=== PATIENT | female | born 1985 | race Caucasian/White ===

== ENCOUNTER 2016-10-19 10:26 | Emergency (ER) | payer OTHER ==
[~2016-10-19] VITALS: Ht 175.3 cm; Wt 57.2 kg
[2016-10-19 10:51] VITALS: BP 126/76
[2016-10-19 11:07] VITALS: BP_SYST 118; BP_SYST 137; BP_DIAS 74; BP_DIAS 83; BP_DIAS 86
[2016-10-19] MEDS ORDERED: Lidocaine 2% Visc 15ml soln ORAL ONE (11:15)
[2016-10-19] MEDS ORDERED: Mylanta II UD 30ml ORAL ONE (11:15)
[2016-10-19] MEDS ORDERED: Famotidine 20 MG/ 2ML VIAL IVP ONE (11:15)
[2016-10-19 11:33] LABS: BASOPHILS % (AUTO) 1.3 % (0.0-2.0); EOSINOPHILS % (AUTO) 2.9 % (0.0-3.0); LYMPHOCYTES % (AUTO) 46.6 % (20.0-45.0); MEAN CORPUSCULAR HEMOGLOBIN 30.2 PG (27.0-31.0); MEAN CORPUSCULAR HGB CONC 33.3 G/DL (32.0-36.0); MEAN CORPUSCULAR VOLUME 91 FL (80-99); MEAN PLATELET VOLUME 10.2 FL (6.5-10.1); MONOCYTES % (AUTO) 6.9 % (1.0-10.0); NEUTROPHILS % (AUTO) 42.4 % (45.0-75.0); PLATELET COUNT 349 K/UL (150-450); RED BLOOD COUNT 4.83 M/UL (4.20-5.40); RED CELL DISTRIBUTION WIDTH 11.8 % (11.6-14.8)
[2016-10-19 11:36] LABS: KETONES,URINE NEGATIVE (NEGATIVE); LEUKOCYTE ESTERASE ,URINE NEGATIVE (NEGATIVE); NITRITE,URINE NEGATIVE (NEGATIVE); PH,URINE 7 (4.5-8.0); PROTEIN,URINE NEGATIVE (NEGATIVE); UROBILINOGEN,URINE NORMAL MG/DL (0.0-1.0)
[2016-10-19 11:41] LABS: APPEARANCE,URINE CLEAR
[2016-10-19 11:48] LABS: ALANINE AMINOTRANSFERASE 10 U/L (3-33); ALBUMIN/GLOBULIN RATIO 1.7 (1.0-2.7); ANION GAP 17 (5-15); ASPARTATE AMINO TRANSFERASE 18 U/L (5-40); CALCIUM 10.3 mg/dL (8.6-10.2); CARBON DIOXIDE 19 mEQ/L (20-30); CHLORIDE 99 mEQ/L (98-107); CREATININE 0.8 mg/dL (0.5-0.9); GLOMERULAR FILTRATION RATE > 60 mL/min (>60); HEMOLYSIS 6; POTASSIUM 3.7 mEQ/L (3.4-4.9); SODIUM 135 mEQ/L (135-145); TOTAL PROTEIN 7.2 g/dL (6.6-8.7); TROPONIN I < 0.30 ng/mL (<=0.30)
[2016-10-19] MEDS ORDERED: PROPYLTHIOURACI50 MG PO (12:27)
[2016-10-19] MEDS ORDERED: PROPYLTHIOURACI50 M2 PO (12:27)
[2016-10-19] MEDS ORDERED: PROPRANOLOL HCL10 MG ORAL (12:27)
[2016-10-19 12:30] VITALS: BP 112/76
--- NOTE | 2016-10-19 12:38 | Emergency Room Report ---
History of Present Illness General Chief Complaint: Chest Pain Source: Patient, Significant Other Present Illness HPI Patient chief complaint is chest pain. It has been occurring for about 2 weeks. She states it is substernal. It is some what sharp and burning with some pleuritic nature. No cough, fever, sore throat. She just returned from long trip to [place] and [place]. She denies swelling or calf pain. While abroad , one doctor told her she had "a little" amount of bacteria in her stomach. She was seen several times while travelling as she was diagnosed with Grave's disease and started on PTU several months ago. In addition, she was unable to tolerate methimazole. While abroad, her PTU dose was increased. She is also on propranolol. She has been taking Zantac but recently it has not helped. The chest pain is worse with eating and also with laying down. Pain is 8/10. She also complains of weakness and nausea with a feeling like she is about to pass out when she stands up. This weakness has increased in the past week and much more since returning home. She saw her drapery rod assembler and he ordered thyroid tests. Not smoker. No diabetes. No visual changes (except when dizzy - when they are fleeting). Last period was normal, now. No dysuria. No constipation. Allergies: Coded Allergies: METHIMAZOLE (Verified Allergy, Unknown, 10/19/16) Patient History Past Medical History: see triage record Past Surgical History: other - breast augmentation Social History: Denies: smoking Social History Narrative 1 1/2 yo at home Last Menstrual Period: on period Reviewed Nursing Documentation: PMH: Agreed, PSxH: Agreed Nursing Documentation-PM Past Medical History: No History, Except For Review of Systems All Other Systems: negative except mentioned in HPI Physical Exam Vital Signs Date Time Temp Pulse Resp B/P Pulse Ox O2 Delivery O2 Flow Rate FiO2 10/19/16 10:32 97.9 57 16 133/85 99 Room Air Sp02 EP Interpretation: reviewed, normal General Appearance: well appearing, no apparent distress, GCS 15 Head: normocephalic Eyes: bilateral eye EOMI, bilateral eye PERRL, bilateral eye normal inspection , bilateral eye other - no exopthalmos ENT: moist mucus membranes Neck: supple, thyromegaly - R>L Respiratory: chest non-tender, lungs clear, normal breath sounds Cardiovascular #1: regular rate, rhythm Cardiovascular #2: 2+ radial (R) Gastrointestinal: normal inspection, normal bowel sounds, non tender, no mass, non-distended Musculoskeletal: back normal, gait/station normal, normal range of motion, no calf tenderness Neurologic: alert, oriented x3, motor strength/tone normal, normal gait, grossly normal Psychiatric: mood/affect normal Skin: normal inspection, warm/dry Medical Decision Making Diagnostic Impression: Primary Impression: Chest pain Qualified Codes: R07.9 - Chest pain, unspecified Additional Impression: Graves disease ER Course Patient with Grave's disease presents with chest pain with weakness and dizziness after prolonged air travel. DDx: GERD, gastritis, PE, pericarditis, dehydration, hyper or hypothyroidism, bradycardia amongst others. Very complex patient where we need to exclude life threatening events (PE). EKG and labs will be performed (including TFTs). Patient will receive IV hydration. We will check D dimer - if + consider CTA chest. She will be treated with pepcid and lido with mylanta. Patient not orthostatic - but dizzy with stand. EKG below. WBC and H/H normal. + D-dimer. CTA ordered. Calcium minimally elevated and free T4 somewhat decreased with normal TSH. CTA = Inadequate study. Due to clinical presentation, electing not to repeat study (low probability). Discussed with Dr. Craig who recommends decreased in PTU, stop propranolol. Patient improved. Discussed finding with patient. Also discussed need for treatment of probable GERD and consideration for eval for H pylori. Patient stable for outpatient observation and treatment. Laboratory Tests Test 10/19/16 11:11 White Blood Count 10.0 K/UL (4.8-10.8) Red Blood Count 4.83 M/UL (4.20-5.40) Hemoglobin 14.6 G/DL (12.0-16.0) Hematocrit 43.9 % (37.0-47.0) Mean Corpuscular Volume 91 FL (80-99) Mean Corpuscular Hemoglobin 30.2 PG (27.0-31.0) Mean Corpuscular Hemoglobin Concent 33.3 G/DL (32.0-36.0) Red Cell Distribution Width 11.8 % (11.6-14.8) Platelet Count 349 K/UL (150-450) Mean Platelet Volume 10.2 FL (6.5-10.1) H Neutrophils (%) (Auto) 42.4 % (45.0-75.0) L Lymphocytes (%) (Auto) 46.6 % (20.0-45.0) H Monocytes (%) (Auto) 6.9 % (1.0-10.0) Eosinophils (%) (Auto) 2.9 % (0.0-3.0) Basophils (%) (Auto) 1.3 % (0.0-2.0) Erythrocyte Sedimentation Rate 9 MM/HR (0-20) D-Dimer 521 ng/mL (<500) H Urine Color Pale yellow Urine Appearance Clear Urine pH 7 (4.5-8.0) Urine Specific Rubicon 1.015 (1.005-1.035) Urine Protein Negative (NEGATIVE) Urine Glucose (UA) Negative (NEGATIVE) Urine Ketones Negative (NEGATIVE) Urine Occult Blood Negative (NEGATIVE) Urine Nitrite Negative (NEGATIVE) Urine Bilirubin Negative (NEGATIVE) Urine Urobilinogen Normal MG/DL (0.0-1.0) Urine Leukocyte Esterase Negative (NEGATIVE) Urine HCG, Qualitative Negative Sodium Level 135 mEQ/L (135-145) Potassium Level 3.7 mEQ/L (3.4-4.9) Chloride Level 99 mEQ/L (98-107) Carbon Dioxide Level 19 mEQ/L (20-30) L Anion Gap 17 (5-15) H Blood Urea Nitrogen 12 mg/dL (7-23) Creatinine 0.8 mg/dL (0.5-0.9) Estimate Glomerular Filtration Rate > 60 mL/min (>60) Glucose Level 96 mg/dL (74-106) Calcium Level 10.3 mg/dL (8.6-10.2) H Total Bilirubin 0.7 mg/dL (0.0-1.2) Aspartate Amino Transferase (AST) 18 U/L (5-40) Alanine Aminotransferase (ALT) 10 U/L (3-33) Alkaline Phosphatase 162 U/L (35-104) H Total Creatine Kinase 93 U/L (26-140) Troponin I < 0.30 ng/mL (<=0.30) Total Protein 7.2 g/dL (6.6-8.7) Albumin 4.6 g/dL (3.5-5.2) Globulin 2.6 g/dL Albumin/Globulin Ratio 1.7 (1.0-2.7) Thyroid Stimulating Hormone (TSH) 1.340 uIU/mL (0.300-4.500) Free Thyroxine 0.84 ng/dL (0.86-1.85) L Free Triiodothyronine Pending EKG Diagnostic Results Rate: normal Rhythm: NSR ST Segments: no acute changes Rhythm Strip Diag. Results EP Interpretation: yes Rhythm: NSR, no PVC's, no ectopy CT/MRI/US Diagnostic Results CT/MRI/US Diagnostic Results : Imaging Test Ordered: CTA chest Impression inadequate view, but no major PE in major vessels Last Vital Signs Date Time Temp Pulse Resp B/P Pulse Ox O2 Delivery O2 Flow Rate FiO2 10/19/16 14:56 64 12 107/63 100 Room Air 10/19/16 13:57 98.2 Status: improved Disposition: HOME, SELF-CARE Condition: Improved Referrals: NON PHYSICIAN (PCP) Andrea Melendrez M.D. Oct 19, 2016 12:38
[2016-10-19 12:46] LABS: ERYTHROCYTE SEDIMENTATION RATE 9 MM/HR (0-20)
[2016-10-19 13:57] VITALS: BP 111/78
[2016-10-19 14:56] VITALS: BP 107/63
--- NOTE | 2016-10-21 09:14 | Diagnostic Imaging Report ---
Indication: CP Technique: XRAY CHEST 1 V Comparison: None. Findings: The cardiomediastinal silhouette is normal. The lungs are clear. There is no evidence of pleural fluid. The bones are unremarkable. Impression: Normal chest.
--- NOTE | 2016-10-21 09:15 | Diagnostic Imaging Report ---
Indication: Chest pain Technique: CT angiography performed utilizing thin section spiral CT and bolus contrast injection. Axial, coronal, and sagittal images were generated. Maximum intensity projections (MIPs) were obtained in the coronal and sagittal planes. Dose: Total Dose Length Product - DLP [address] Dose Index - CTDIvol(s) 12.62, 22.41 mGy. Findings: Study is not of optimal quality due to poor opacification in the pulmonary arteries in the upper lungs. The heart is normal in size. The aorta is unremarkable. No definite pulmonary emboli are identified. There is no evidence of aortic dissection. Bilateral breast implants are noted. There is increased soft tissue in the anterior mediastinum. The lungs are unremarkable. The pleural spaces normal. Impression: Suboptimal examination. No definite evidence of pulmonary emboli. Abnormal increased soft tissue in the anterior mediastinum. Possibilities include enlarged thymus or anterior mediastinal tumor. Further evaluation of this is suggested. Bilateral breast implants. The above report is concordant with preliminary reading by [employer] . The CT scanner at [facility] is accredited by the [employer] and the scans are performed using protocols designed to limit radiation exposure to as low as reasonably achievable to attain images of sufficient resolution adequate for diagnostic evaluation.
--- NOTE | 2016-10-24 01:02 | Cardiology Report ---
APPROVED REPORT EKG Measurement Heart [id number] Normal sinus rhythm with sinus arrhythmia [facility] ECG
== END 2016-10-19 14:56 | disposition home or self-care (01) ==
LOC: EMR 10:48
DX: R07.89 Other chest pain (principal); E05.00 Thyrotoxicosis with diffuse goiter without thyrotoxic crisis or storm; R42 Dizziness and giddiness; R53.1 Weakness; Z98.82 Breast implant status
CPT/HCPCS: 36415; 71010; 71275; 80053; 81003; 81025; 82550; 84439; 84443; 84481; 84484; 85025; 85379; 85651; 93005; 96374; 96375; 99284; Q9967; S0028

== ENCOUNTER 2017-11-30 12:28 | Emergency (ER) | payer OTHER ==
[~2017-11-30] VITALS: Ht 175.3 cm; Wt 59.0 kg
[~2017-11-30 12:28] MED LIST: PROPRANOLOL HCL10 MG ORAL; PROPYLTHIOURACI50 M2 PO; PROPYLTHIOURACI50 MG PO
[2017-11-30 12:35] VITALS: BP 106/60
[2017-11-30] MEDS ORDERED: DICLEGIS DR 101 EACH PO (13:04)
[2017-11-30 13:10] VITALS: BP 99/62
[2017-11-30 13:12] VITALS: BP 101/71
--- NOTE | 2017-11-30 15:28 | Emergency Room Report ---
History of Present Illness General Chief Complaint: General Complaint Source: Patient Present Illness HPI Patient is a 32-year-old female who presented after increased palpitations. Patient reportedly had been having multiple episodes of emesis. The patient reports having no current symptoms at this time. As she had prior history of hyperthyroidism. The patient reportedly is euthyroid after iodine treatment. She reports having resolution of symptoms after coming to the emergency department. She denies any leg pain or swelling. She denies feeling dizzy or lightheaded. She denies prior cardiac history Allergies: Coded Allergies: METHIMAZOLE (Verified Allergy, Unknown, 10/19/16) Patient History Past Medical History: see triage record Last Menstrual Period: 10/10/17 Now: Yes : 4 Para: 1 Reviewed Nursing Documentation: PMH: Agreed; PSxH: Agreed Nursing Documentation-PMH Past Medical History: No History, Except For Hx Cardiac Problems: No - History of Graves Disease Review of Systems All Other Systems: negative except mentioned in HPI Physical Exam Vital Signs Date Time Temp Pulse Resp B/P (MAP) Pulse Ox O2 Delivery O2 Flow Rate FiO2 11/30/17 12:35 98.1 82 18 105/63 99 Room Air 98.1 General Appearance: well appearing, no apparent distress, alert, GCS 15, non- toxic Head: normocephalic, atraumatic ENT: hearing grossly normal, normal voice Neck: full range of motion, supple Respiratory: no respiratory distress, speaking full sentences Cardiovascular #1: normal inspection, normal peripheral pulses, regular rate, rhythm, no edema Gastrointestinal: normal inspection, non tender, soft Musculoskeletal: normal inspection, no calf tenderness Neurologic: normal inspection, alert, oriented x3, responsive, sound assistant III-XII nml as tested, normal gait Psychiatric: mood/affect normal Skin: no rash Medical Decision Making Diagnostic Impression: Primary Impression: Hyperemesis Additional Impression: Intrauterine ER Course Patient is a 32-year-old female who presented after increased vomiting. Differential diagnosis included was not limited to hyperemesis, Ectopic ,dehydration, among others.Because of complexity of patient's case laboratory testing and imaging studies were ordered. The bedside ultrasound was performed which showed intrauterine with adequate heart tones approximate 140s. The patient was able tolerate by mouth fluids. patient was given prescription for Diclegis. The patient is advised to follow up with OB/ SORTER OPERATOR in 1-2 days. Patient is advised to return if any worsening condition or if any changes in status that are concerning. This report is dictated with [employer] fell cutter software which may occasionally lead to discrepancies related to use of this software. Last Vital Signs Date Time Temp Pulse Resp B/P (MAP) Pulse Ox O2 Delivery O2 Flow Rate FiO2 11/30/17 13:12 97.9 70 18 101/71 99 Room Air 97.9 Status: improved Disposition: HOME, SELF-CARE Condition: Stable Scripts Doxylamine/Pyridoxine Hcl (CAMILA BARRIOS 10-10 MG TABLET) 1 Each Tablet.dr 1 EACH PO [facility], #20 TAB Prov: Carlo Rosales MD 11/30/17 Referrals: NON PHYSICIAN (PCP) Patient Instructions: First Trimester of , Dehydration, Adult Carlo Rosales MD Nov 30, 2017 15:28
== END 2017-11-30 13:16 | disposition home or self-care (01) ==
LOC: EMR 13:14 → EDUNIT# 13:14 → EMR 13:16
DX: O21.0 Mild hyperemesis gravidarum (principal); Z3A.00 Weeks of gestation of pregnancy not specified
CPT/HCPCS: 99282

== ENCOUNTER 2019-01-02 22:43 | Emergency (ER) | payer OTHER ==
[~2019-01-02] VITALS: Ht 175.3 cm; Wt 65.8 kg
[~2019-01-02 22:43] MED LIST changes: +DICLEGIS DR 101 EACH PO
--- NOTE | 2019-01-02 23:01 | NUR ---
ED Nurse Note: Walk-in patient complaints of nausea and not feeling well. recent history of hyperkalemia and recent chest pain as recent as 30 minutes ago. Patient appears calm, vital signs stable and documented.
[2019-01-02 23:04] VITALS: BP 104/72
--- NOTE | 2019-01-02 23:27 | Emergency Room Report ---
History of Present Illness General Chief Complaint: General Complaint Source: Patient Present Illness HPI Disclaimer: Please note that this report is being documented using [employer] technology. This can lead to erroneous entry secondary to incorrect interpretation by the dictating instrument. HPI: 33-year-old with history of Graves' disease status post iodine treatment presents for evaluation of abdominal chest discomfort. Symptoms began earlier today. She has noted a gnawing epigastric burning throughout the day that when she laid down to go to sleep approximately 30 minutes ago spread up into her chest. She described a warm burning sensation over her chest and mild cough. She noted some nausea but did not vomit. She did vomit yesterday morning but has not vomited since. She is noted some loose stools over the past few days. She had some routine blood work drawn showing hyperkalemia however repeat labs this morning showed a normal potassium of 4.5. She has no prior history of kidney disease or other episodes of hyperkalemia in the past. She is otherwise in her usual state of health denies any fevers, chills, sore throat, nasal congestion, current chest pain, shortness of breath, abdominal pain, dysuria hematuria. She was smoking some marijuana and states she became anxious because of the high potassium yesterday and was concerned of her cardiac arrhythmia after speaking with her PMD. PMH: Graves' disease status post iodine ablation PSH: Denies Allergies: Denies Social Hx: Occasional tobacco use, occasional marijuana use Allergies: Coded Allergies: METHIMAZOLE (Verified Allergy, Unknown, 10/19/16) Patient History Last Menstrual Period: 12/22/18 Nursing Documentation-PMH Past Medical History: No Stated History Hx Cardiac Problems: No - History of Graves Disease Review of Systems All Other Systems: negative except mentioned in HPI Physical Exam Vital Signs Date Time Temp Pulse Resp B/P (MAP) Pulse Ox O2 Delivery O2 Flow Rate FiO2 01/02/19 22:46 97.7 89 16 104/72 (83) 97 Room Air General: Awake and alert, no acute distress HEENT: NC/AT. EOMI. moist mucous membranes Chest Wall: No tenderness, no deformity Cardiovascular: RRR. S1 and S2 normal. No murmur appreciated Resp: Normal work of breathing. No cough, wheezing or crackles appreciated Abdomen: Abdomen is soft, nondistended. Tenderness in the epigastrium and mildly in the left upper quadrant. Negative Recinos's. No tenderness in the right upper quadrant of the lower quadrants bilaterally. Skin: Intact. No abrasions, laceration or rash over the exposed skin MSK: Normal tone and bulk. Moving all extremities. No obvious deformity. Neuro: Awake and alert. Mentating appropriately. Medical Decision Making Diagnostic Impression: Primary Impression: Nausea vomiting and diarrhea Additional Impression: Chest pain ER Course 33-year-old female presents for evaluation of epigastric burning, nausea and one episode of vomiting yesterday, loose stools and some shortness of breath with anxiety symptoms. Likely, this is acid reflux causing some irritation of the esophagus mixed with anxiety given her THC use, concerns over cardiac arrhythmia secondary to hyperkalemia. Overall she is well-appearing currently denying any symptoms. Given the recent hyperkalemia finding we will check an EKG, labs with lipase, start IV fluids but treat the patient with a GI cocktail and famotidine. If improved she may be discharged home with outpatient follow- up. She is overall well-appearing with stable vital signs. Laboratory Tests Test 01/02/19 23:45 White Blood Count 8.8 K/UL (4.8-10.8) Red Blood Count 4.09 M/UL (4.20-5.40) L Hemoglobin 12.9 G/DL (12.0-16.0) Hematocrit 36.5 % (37.0-47.0) L Mean Corpuscular Volume 89 FL (80-99) Mean Corpuscular Hemoglobin 31.5 PG (27.0-31.0) H Mean Corpuscular Hemoglobin Concent 35.2 G/DL (32.0-36.0) Red Cell Distribution Width 10.8 % (11.6-14.8) L Platelet Count 223 K/UL (150-450) Mean Platelet Volume 10.5 FL (6.5-10.1) H Neutrophils (%) (Auto) 63.1 % (45.0-75.0) Lymphocytes (%) (Auto) 28.2 % (20.0-45.0) Monocytes (%) (Auto) 6.2 % (1.0-10.0) Eosinophils (%) (Auto) 1.5 % (0.0-3.0) Basophils (%) (Auto) 1.0 % (0.0-2.0) Sodium Level 140 MMOL/L (136-145) Potassium Level 3.6 MMOL/L (3.5-5.1) Chloride Level 104 MMOL/L (98-107) Carbon Dioxide Level 28 MMOL/L (21-32) Anion Gap 8 mmol/L (5-15) Blood Urea Nitrogen 11 mg/dL (7-18) Creatinine 0.9 MG/DL (0.55-1.30) Estimate Glomerular Filtration Rate > 60 mL/min (>60) Glucose Level 123 MG/DL (74-106) H Calcium Level 9.7 MG/DL (8.5-10.1) Total Bilirubin 0.4 MG/DL (0.2-1.0) Aspartate Amino Transferase (AST) 16 U/L (15-37) Alanine Aminotransferase (ALT) 14 U/L (12-78) Alkaline Phosphatase 72 U/L (46-116) Total Creatine Kinase 56 U/L (26-308) Creatine Kinase MB < 0.5 NG/ML (0.0-3.6) Creatine Kinase MB Relative Index 0.8 Troponin I 0.000 ng/mL (0.000-0.056) Total Protein 6.9 G/DL (6.4-8.2) Albumin 3.8 G/DL (3.4-5.0) Globulin 3.1 g/dL Lipase 163 U/L (73-393) EKG Diagnostic Results EKG Time: 23:24 Rate: normal Rhythm: NSR ST Segments: no acute changes Other Impression Sinus rhythm, normal axis, increased SD interval at 242 ms consistent with first -degree AV block. No ST segment changes. No hyperacute T waves. Rhythm Strip Diag. Results Rhythm Strip Time: 23:24 EP Interpretation: yes Rate: 70s Rhythm: NSR, no PVC's, no ectopy Chest X-Ray Diagnostic Results Chest X-Ray Diagnostic Results : # of Views/Limited/Complete: 1 View Indication: Chest Pain EP Interpretation: Yes Interpretation: no consolidation, no effusion, no pneumothorax, no acute cardiopulmonary disease Impression: No acute disease Electronically Signed by: Electronically signed by Dr. Marshal Granados Reevaluation Time: 00:48 Last Vital Signs Date Time Temp Pulse Resp B/P (MAP) Pulse Ox O2 Delivery O2 Flow Rate FiO2 01/02/19 23:04 97.7 79 16 104/72 97 Room Air Reevaluation Impression EKG, chest x-ray and labs have returned largely unremarkable. Troponin is negative. Potassium within normal limits. Patient reported some improvement after taking the GI cocktail but is still feeling somewhat nauseated. She reports now that her children have been recently sick at home with a gastrointestinal disease. Likely this is a viral syndrome causing an acute gastritis and GERD. Will treat with Zofran and omeprazole as an outpatient. She will follow-up with her PMD on Friday. Discussed reasons to return to the emergency department with patient and her who is now present at bedside. They understand agree with this treatment plan will be discharged home. Disposition: HOME, SELF-CARE Condition: Improved Scripts Ondansetron Odt* (ZOFRAN ODT*) 4 Mg Tab.rapdis 4 MG BC EVERY 6 HOURS PRN for Nausea & Vomiting, #20 TAB 0 Refills Prov: Marshal Granados MD 01/03/19 Omeprazole Magnesium (PRILOSEC OTC) 20 Mg Tablet.dr 20 MG ORAL DAILY for 14 Days, #14 TAB Prov: Marshal Granados MD 01/03/19 Marshal Granados MD Jan 02, 2019 23:27
[2019-01-02] MEDS ORDERED: Dicyclomine HCl 10mg/5ml oral soln ORAL ONE (23:30)
[2019-01-02] MEDS ORDERED: Lidocaine 2% Visc 15ml soln ORAL ONE (23:30)
[2019-01-02] MEDS ORDERED: Mylanta II UD 30ml ORAL ONE (23:30)
[2019-01-03 00:03] LABS: EOSINOPHILS % (AUTO) 1.5 % (0.0-3.0); HEMATOCRIT 36.5 % (37.0-47.0); HEMOGLOBIN 12.9 G/DL (12.0-16.0); LYMPHOCYTES % (AUTO) 28.2 % (20.0-45.0); MEAN CORPUSCULAR VOLUME 89 FL (80-99); MONOCYTES % (AUTO) 6.2 % (1.0-10.0); NEUTROPHILS % (AUTO) 63.1 % (45.0-75.0); PLATELET COUNT 223 K/UL (150-450); RED BLOOD COUNT 4.09 M/UL (4.20-5.40); RED CELL DISTRIBUTION WIDTH 10.8 % (11.6-14.8); WHITE BLOOD COUNT 8.8 K/UL (4.8-10.8)
[2019-01-03 00:07] VITALS: BP 108/63
--- NOTE | 2019-01-03 00:10 | NUR ---
ED Nurse Note: Patient tolerated medication administration and lab draw well. CXR performed. Awaiting results and further instructions. vital signs stable and documented. Patient resting comfortably with no s/s of acute distress with significant other at bedside.
[2019-01-03 00:23] LABS: ALANINE AMINOTRANSFERASE 14 U/L (12-78); ALKALINE PHOSPHATASE 72 U/L (46-116); ANION GAP 8 mmol/L (5-15); ASPARTATE AMINO TRANSFERASE 16 U/L (15-37); BILIRUBIN,TOTAL 0.4 MG/DL (0.2-1.0); CARBON DIOXIDE 28 MMOL/L (21-32); CHLORIDE 104 MMOL/L (98-107); CKMB < 0.5 NG/ML (0.0-3.6); CREATINE KINASE 56 U/L (26-308); CREATININE 0.9 MG/DL (0.55-1.30); POTASSIUM 3.6 MMOL/L (3.5-5.1); SODIUM 140 MMOL/L (136-145)
--- NOTE | 2019-01-03 00:25 | Diagnostic Imaging Report ---
EXAM: XR Chest, 1 View CLINICAL HISTORY: CP TECHNIQUE: Frontal view of the chest. COMPARISON: No relevant prior studies available. FINDINGS: Lungs: No acute cardio pulmonary disease. Pleural space: Unremarkable. No pneumothorax. Heart: Unremarkable. No cardiomegaly. Mediastinum: Unremarkable. Bones joints: Unremarkable. IMPRESSION: 1. No acute cardio pulmonary disease. 2. If there is continued concern, recommend PA and lateral chest radiographs or CT.
[2019-01-03 00:37] LABS: ALBUMIN 3.8 G/DL (3.4-5.0); BLOOD UREA NITROGEN 11 mg/dL (7-18)
[2019-01-03] MEDS ORDERED: ONDANSETRON ODT4 MG BC (00:41)
[2019-01-03] MEDS ORDERED: PRILOSEC OTC20 MG ORAL (00:41)
[2019-01-03 00:42] LABS: CALCIUM 9.7 MG/DL (8.5-10.1)
[2019-01-03 00:43] VITALS: BP 108/63
--- NOTE | 2019-01-03 00:43 | NUR ---
ER DISCHARGE NOTE: Patient is cleared to be discharged per ERMD, pt is aox4, on room air, with stable vital signs. pt was given dc and prescription instructions, pt was able to verbalize understanding, pt id band and iv site removed without complications. pt is able to ambulate with steady gait. pt took all belongings.
== END 2019-01-03 00:48 | disposition home or self-care (01) ==
LOC: EMR 23:53
DX: R07.9 Chest pain, unspecified (principal); Z88.8 Allergy status to other drugs, medicaments and biological substances; E05.00 Thyrotoxicosis with diffuse goiter without thyrotoxic crisis or storm; R11.2 Nausea with vomiting, unspecified; R19.7 Diarrhea, unspecified
CPT/HCPCS: 36415; 71045; 80053; 82550; 82553; 83690; 84484; 85025; 96374; 99284; S0028

== ENCOUNTER 2019-01-06 07:45 | Emergency (ER) | payer OTHER ==
[~2019-01-06] VITALS: Ht 175.3 cm; Wt 64.9 kg
[~2019-01-06 07:45] MED LIST changes: +ONDANSETRON ODT4 MG BC; +PRILOSEC OTC20 MG ORAL
[2019-01-06] MEDS ORDERED: NKM (07:55)
--- NOTE | 2019-01-06 07:55 | NUR ---
ED Nurse Note: Yadi walked into ED from home c/o upper abdominal pain and nausea for 4 days. patient visited [facility] on 01/02/19 for the same symptoms, patient reports she followed up with her PMD on 01/04/19 and 01/05/19 and prescribed her Bentyl, which patient reports it has not been helping her much. patient is alert awake x4 ambulatory steady gait, breathing unlabored and even, speaking in full sentences.
[2019-01-06] MEDS ORDERED: Isovue-300 100ml vial INJ PRN ×2 (08:15→09:00)
[2019-01-06] MEDS ORDERED: Mylanta II UD 30ml ORAL ONE (08:15)
[2019-01-06] MEDS ORDERED: Lidocaine 2% Visc 15ml soln ORAL ONE (08:15)
[2019-01-06] MEDS ORDERED: Pantoprazole Inj IV ONE (08:15)
[2019-01-06 08:29] VITALS: BP 103/61
--- NOTE | 2019-01-06 08:31 | NUR ---
ED Nurse Note: blood and urine sent to lab, patient is resting comfortably in bed.
[2019-01-06 08:33] LABS: BASOPHILS % (AUTO) 1.6 % (0.0-2.0); EOSINOPHILS % (AUTO) 1.5 % (0.0-3.0); HEMATOCRIT 41.7 % (37.0-47.0); HEMOGLOBIN 14.4 G/DL (12.0-16.0); LYMPHOCYTES % (AUTO) 41.1 % (20.0-45.0); MEAN CORPUSCULAR VOLUME 90 FL (80-99); MONOCYTES % (AUTO) 9.1 % (1.0-10.0); NEUTROPHILS % (AUTO) 46.8 % (45.0-75.0); PLATELET COUNT 259 K/UL (150-450); RED BLOOD COUNT 4.63 M/UL (4.20-5.40); RED CELL DISTRIBUTION WIDTH 10.8 % (11.6-14.8); WHITE BLOOD COUNT 5.9 K/UL (4.8-10.8)
[2019-01-06 08:34] LABS: APPEARANCE,URINE CLEAR; BILIRUBIN, URINE NEGATIVE (NEGATIVE); COLOR,URINE PALE YELLOW; GLUCOSE, URINE (UA) NEGATIVE (NEGATIVE); KETONES,URINE NEGATIVE (NEGATIVE); LEUKOCYTE ESTERASE ,URINE NEGATIVE (NEGATIVE); NITRITE,URINE NEGATIVE (NEGATIVE); PH,URINE 6.5 (4.5-8.0); PROTEIN,URINE NEGATIVE (NEGATIVE); UROBILINOGEN,URINE NORMAL MG/DL (0.0-1.0)
[2019-01-06 08:43] LABS: ANION GAP 7 mmol/L (5-15); BLOOD UREA NITROGEN 6 mg/dL (7-18); CALCIUM 9.5 MG/DL (8.5-10.1); CARBON DIOXIDE 29 MMOL/L (21-32); CHLORIDE 104 MMOL/L (98-107); CREATININE 0.9 MG/DL (0.55-1.30); POTASSIUM 4.4 MMOL/L (3.5-5.1); SODIUM 140 MMOL/L (136-145)
[2019-01-06 08:50] LABS: ALANINE AMINOTRANSFERASE 17 U/L (12-78); ALBUMIN 4.5 G/DL (3.4-5.0); ALBUMIN/GLOBULIN RATIO 1.2 (1.0-2.7); ALKALINE PHOSPHATASE 77 U/L (46-116); BILIRUBIN,TOTAL 0.9 MG/DL (0.2-1.0)
--- NOTE | 2019-01-06 08:50 | NUR ---
ED Nurse Note: patient taken to CT via wheelchair.
[2019-01-06 09:09] LABS: ASPARTATE AMINO TRANSFERASE 14 U/L (15-37)
--- NOTE | 2019-01-06 09:38 | Emergency Room Report ---
History of Present Illness General Chief Complaint: Abdominal Pain Source: Patient Present Illness HPI 33-year-old male 33-year-old female presents ED for evaluation. Patient complaining of abdominal pain and nausea. Was seen here on 01/02 and had a work- up done. Patient was subsequently treated and discharged. Patient states she seen her PMD twice since then and states her symptoms are not resolving. Was prescribed dicyclomine and states it is not helping. Is scheduled to follow-up with GI next week. Pain is sharp, epigastric, 9 out of 10, nonradiating. Denies fevers or chills. Denies chest pain. Denies diarrhea. No other aggravating relieving factors. Denies any other associated symptoms Allergies: Coded Allergies: METHIMAZOLE (Verified Allergy, Unknown, 10/19/16) Patient History Past Medical History: other - graves Past Surgical History: other - iodine ablation Pertinent Family History: none Social History: Denies: smoking, alcohol use, drug use Last Menstrual Period: 12/21/18 Now: No - UNKNOWN Immunizations: UTD Reviewed Nursing Documentation: PMH: Agreed; PSxH: Agreed Nursing Documentation-PMH Past Medical History: No Stated History Hx Cardiac Problems: No - History of Graves Disease Review of Systems All Other Systems: negative except mentioned in HPI Physical Exam Vital Signs Date Time Temp Pulse Resp B/P (MAP) Pulse Ox O2 Delivery O2 Flow Rate FiO2 01/06/19 07:48 97.7 84 16 113/63 (80) 98 Room Air Sp02 EP Interpretation: reviewed, normal General Appearance: no apparent distress, alert, GCS 15, non-toxic Head: normocephalic, atraumatic Eyes: bilateral eye normal inspection, bilateral eye PERRL ENT: hearing grossly normal, normal pharynx, no angioedema, normal voice Neck: full range of motion, supple/symm/no masses Respiratory: chest non-tender, lungs clear, normal breath sounds, speaking full sentences Cardiovascular #1: regular rate, rhythm, no edema Cardiovascular #2: 2+ carotid (R), 2+ carotid (L), 2+ radial (R), 2+ radial (L) , 2+ dorsalis pedis (R), 2+ dorsalis pedis (L) Gastrointestinal: normal bowel sounds, soft, non-distended, no guarding, no rebound, tenderness - epigastric Rectal: deferred Genitourinary: normal inspection, no CVA tenderness Musculoskeletal: back normal, gait/station normal, normal range of motion, non- tender Neurologic: alert, oriented x3, responsive, motor strength/tone normal, sensory intact, speech normal Psychiatric: judgement/insight normal, memory normal, mood/affect normal, no suicidal/homicidal ideation Reflexes: 3+ bicep (R), 3+ bicep (L), 3+ tricep (R), 3+ tricep (L), 3+ knee (R) , 3+ knee (L) Skin: no rash Lymphatic: no adenopathy Medical Decision Making Diagnostic Impression: Primary Impression: Gastritis Qualified Codes: K29.00 - Acute gastritis without bleeding ER Course Hospital Course 33 yo F presents to ED c/o chest and abd pain Differential diagnosis includes-appendicitis, cholecystitis, small bowel obstruction, gastritis, Clinical course Patient placed on stretcher. After initial history and physical I ordered labs , IV fluids, protonix, CT Chest/Abd/Pelvis Labs - no leukocytosis, electrolytes ok, CT Chest/AbdPelvis -no acute process I discussed findings with the patient. States she feels better after the Protonix. I believe patient would benefit from outpatient GI evaluation and endoscopy. States she has this scheduled for her next week. Safe for discharge for close outpatient follow-up I feel this is a highly complex case requiring extensive working including EKG/ Rhythm strip, Xray/CT/US, Blood/urine lab work, repeat exams while in ED, and administration of strong opiates/narcotics for pain control, admission to hospital or close patient follow up. Diagnosis - gastritis Stable and discharged to home with Rx Pepcid. Followup with PMD. Return to ED if symptoms recur or worsen Labs Test 01/06/19 08:13 White Blood Count 5.9 K/UL (4.8-10.8) Red Blood Count 4.63 M/UL (4.20-5.40) Hemoglobin 14.4 G/DL (12.0-16.0) Hematocrit 41.7 % (37.0-47.0) Mean Corpuscular Volume 90 FL (80-99) Mean Corpuscular Hemoglobin 31.2 PG (27.0-31.0) Mean Corpuscular Hemoglobin Concent 34.6 G/DL (32.0-36.0) Red Cell Distribution Width 10.8 % (11.6-14.8) Platelet Count 259 K/UL (150-450) Mean Platelet Volume 10.2 FL (6.5-10.1) Neutrophils (%) (Auto) 46.8 % (45.0-75.0) Lymphocytes (%) (Auto) 41.1 % (20.0-45.0) Monocytes (%) (Auto) 9.1 % (1.0-10.0) Eosinophils (%) (Auto) 1.5 % (0.0-3.0) Basophils (%) (Auto) 1.6 % (0.0-2.0) Urine Color Pale yellow Urine Appearance Clear Urine pH 6.5 (4.5-8.0) Urine Specific [place] 1.010 (1.005-1.035) Urine Protein Negative (NEGATIVE) Urine Glucose (UA) Negative (NEGATIVE) Urine Ketones Negative (NEGATIVE) Urine Blood 1+ (NEGATIVE) Urine Nitrite Negative (NEGATIVE) Urine Bilirubin Negative (NEGATIVE) Urine Urobilinogen Normal MG/DL (0.0-1.0) Urine Leukocyte Esterase Negative (NEGATIVE) Urine RBC 2-4 /HPF (0 - 2) Urine WBC 0-2 /HPF (0 - 2) Urine Squamous Epithelial Cells Few /LPF (NONE/OCC) Urine Bacteria Few /HPF (NONE) Urine HCG, Qualitative Negative (NEGATIVE) Sodium Level 140 MMOL/L (136-145) Potassium Level 4.4 MMOL/L (3.5-5.1) Chloride Level 104 MMOL/L (98-107) Carbon Dioxide Level 29 MMOL/L (21-32) Anion Gap 7 mmol/L (5-15) Blood Urea Nitrogen 6 mg/dL (7-18) Creatinine 0.9 MG/DL (0.55-1.30) Estimat Glomerular Filtration Rate > 60 mL/min (>60) Glucose Level 95 MG/DL (74-106) Calcium Level 9.5 MG/DL (8.5-10.1) Total Bilirubin 0.9 MG/DL (0.2-1.0) Aspartate Amino Transf (AST/SGOT) 14 U/L (15-37) Alanine Aminotransferase (ALT/SGPT) 17 U/L (12-78) Alkaline Phosphatase 77 U/L (46-116) Total Protein 8.3 G/DL (6.4-8.2) Albumin 4.5 G/DL (3.4-5.0) Globulin 3.8 g/dL Albumin/Globulin Ratio 1.2 (1.0-2.7) Lipase 120 U/L (73-393) CT/MRI/US Diagnostic Results CT/MRI/US Diagnostic Results : Imaging Test Ordered: CT chest/A/P Impression CT CHEST: Bilateral breast implants are present. The lungs are clear. The heart and mediastinum appear normal. There is residual thymic tissue noted in the anterior mediastinum. This has regressed since the last CT from 2017, when the thymus was more prominent. No adenopathy identified. Axilla appear clear. No pleural or pericardial effusion identified. CT ABDOMEN & PELVIS: No abnormalities of the liver, spleen, pancreas or kidneys, adrenal glands, gallbladder identified. Appendix is normal. No evidence of bowel obstruction. The bladder is unremarkable. 1.5 cm cystic focus demonstrated within the cervix likely a nabothian cyst. There are cystic follicles within both ovaries. There is no hydronephrosis. There is no free fluid or free air. IMPRESSION: No acute findings in the chest abdomen or pelvis identified. Bilateral breast implants. Last Vital Signs Date Time Temp Pulse Resp B/P (MAP) Pulse Ox O2 Delivery O2 Flow Rate FiO2 01/06/19 08:29 97.7 56 17 103/61 100 Room Air Status: improved Disposition: HOME, SELF-CARE Condition: Stable Scripts Famotidine (PEPCID AC) 20 Mg Tablet 20 MG PO DAILY for 14 Days, TAB Prov: Garett Hebert MD 01/06/19 Referrals: NON PHYSICIAN (PCP) Garett Hebert MD Jan 06, 2019 09:38
--- NOTE | 2019-01-06 09:44 | NUR ---
ED Nurse Note: patient came back from CT.
[2019-01-06 09:50] VITALS: BP 111/68
--- NOTE | 2019-01-06 09:50 | NUR ---
ED Nurse Note: patient resting comfortably in bed, reports her stomach pain has gotten better.
--- NOTE | 2019-01-06 11:08 | Diagnostic Imaging Report ---
Indication: Abdominal and chest pain Technique: Continuous helical transaxial imaging of the chest, abdomen and pelvis was obtained from the lung bases to the pubic symphysis during intravenous contrast administration. Multiple phases of enhancement obtained. Coronal 2-D reformats were also obtained. Study obtained in a Siemens sensation [address] Automatic Exposure Control was utilized. Total Dose length Product (DLP): [address] Dose Index Volume (CTDIvol): 143 mGy Comparison: CTA chest 10/19/2016 Findings: CT CHEST: Bilateral breast implants are present. The lungs are clear. The heart and mediastinum appear normal. There is residual thymic tissue noted in the anterior mediastinum. This has regressed since the last CT from 2016, when the thymus was more prominent. No adenopathy identified. Axilla appear clear. No pleural or pericardial effusion identified. CT ABDOMEN & PELVIS: No abnormalities of the liver, spleen, pancreas or kidneys, adrenal glands, gallbladder identified. Appendix is normal. No evidence of bowel obstruction. The bladder is unremarkable. 1.5 cm cystic focus demonstrated within the cervix likely a nabothian cyst. There are cystic follicles within both ovaries. There is no hydronephrosis. There is no free fluid or free air. IMPRESSION: No acute findings in the chest abdomen or pelvis identified. Bilateral breast implants. The CT scanner at [facility] is accredited by the [employer] and the scans are performed using dose optimization techniques as appropriate to a performed exam including Automatic Exposure control.
[2019-01-06] MEDS ORDERED: PEPCID AC20 M2 PO (11:33)
[2019-01-06 11:40] VITALS: BP 122/78
== END 2019-01-06 11:40 | disposition home or self-care (01) ==
LOC: EMR 08:16
DX: K29.00 Acute gastritis without bleeding (principal); E05.00 Thyrotoxicosis with diffuse goiter without thyrotoxic crisis or storm; Z88.8 Allergy status to other drugs, medicaments and biological substances
CPT/HCPCS: 36415; 71260; 74177; 80053; 81003; 81025; 83690; 85025; 96361; 96374; 96375; 99284; C9113; J2405; Q9967